=== PATIENT | female | born 1950 | race Caucasian/White ===

== ENCOUNTER 2016-06-04 03:43 | Emergency (ER) | payer MEDICARE, OTHER ==
[~2016-06-04] VITALS: Ht 157.5 cm; Wt 90.7 kg
[2016-06-04 04:10] LABS: HEMOGLOBIN 13.9 g/dL (12.2-16.2); LYMPH # 2.5 K/mm3 (0.7-4.5); LYMPH % 26.8 % (10-50.0)
[2016-06-04 04:28] LABS: BUN 24 mg/dL (7-18)
[2016-06-04 04:41] LABS: GFR (ESTIMATED) 72 ML/MIN (59-)
--- NOTE | 2016-06-04 05:47 | RADIOLOGY REPORT PS360 ---
CHEST(2 VIEWS-NOT PORTABLE) HISTORY: CHEST PAIN ORDERING PHYSICIAN: Promise Nelson MD PATIENT AGE: 65 years COMPARISON: 06/24/2015 FINDINGS: There is cardiomegaly with mild pulmonary venous congestion consistent with mild CHF. Increased density is present in the right lung base medially. While this may be related to pericardial fat pad, it is more prominent than when compared to the previous exam. Chronic change with superimposed consolidation or volume loss is considered. Follow-up recommended. If this remains prominent and CT may be needed for further evaluation. No lobar consolidation or collapse. The left lung is clear. No acute bony anomalies. IMPRESSION: 1. Mild congestive heart failure. 2. Probable pericardial fat pad on the right. Cannot exclude superimposed airspace disease. Follow-up recommended.
--- NOTE | 2016-06-04 06:25 | Emergency Room Report ---
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 N Clinical Suspician of Infection? N Mental Status: 1 - Regular (Normal Baseline) Sepsis Risk:Low Sepsis Risk Have you (or family members/close friends) recently traveled outside the [place]? N If Yes, where/when: Have you had exposure to infectious disease within the past month? N TB? Other? Specify: Source patient, RN notes reviewed, family, old records Exam Limitations no limitations Comment episode of shoulder blade chest pain with epigastric pain with no fever or rash Cardiac Chest Pain Chest pain indicative of cardiac No Timing/Duration this evening Severity moderate ALLERGIES Coded Allergies: aspirin (Severe, [id number]/THROAT 07/09/15) ciprofloxacin (From Cipro) (Intermediate, I-RASH, RED ALL OVER 07/09/15) Home Medications Reported Medications No Known Home Medications History Medical History General CAD? No Angina: No NH: No Hypertension? No Hyperlipidemia? No CHF? No DVT? No PE? No COPD? No Asthma? No Anemia? No GERD? No Gastric ulcers? No GI Bleed? No Hernia? No Thyroid Problems? No Hypothyroidism? No CVA? No Seizures? No Diabetes? No Renal Insuffiency? No End Stage Renal Disease? No UTI? No Stones? No BPH? No GB Disease: No Nephritic Syndrome? No Asplenia? No Hepatitis? No Sickle Cell Disease? No Arthritis? No Migraines? No Cataracts? No Glaucoma? No MRSA? No HIV? No TB? No Anxiety? No Depression? No Cancer? No Site: N More? No Immunization Hx DT/Tetanus 1-4 Years Ago Surgical Hx Previous Surgery?N Social History Smoking Hx Smoker: Never Smoker Tobacco: No Drugs none Review of Systems All Other Systems Reviewed and Negative Constitutional denies fever Eyes denies drainage ENT denies: ear pain, epistaxis, throat pain. Respiratory denies cough, denies shortness of breath, denies wheezing Cardiovascular see HPI, chest pain, denies palpitations, denies syncope Gastrointestinal denies abdominal pain, denies diarrhea, denies vomiting Genitourinary denies: dysuria, frequency, hesitancy, hematuria. Musculoskeletal denies back pain, denies joint pain, denies joint swelling, denies neck pain Skin denies rash Psychiatric/Neurological denies headache, denies seizure Physical Exam Vital Signs Vital Signs Date Time Temp Pulse Resp B/P Pulse O2 O2 Flow FiO2 Ox Delivery Rate 06/04 0534 72 20 192/85 98 06/04 0544 68 16 174/84 98 06/04 0443 69 16 164/95 98 06/04 0344 98.1 75 16 98 - WBC >12,000 or <4,000 or 10% bands? 2 or more SIRS Criteria Met? B/P:174/84 MAP: Creatinine >2.0? UA output<0.5ml/kg/hr for 2 hrs? Platelet count >100,000? Lactate >2.0mmol/1? INR >1.2 or PTT > than 60 sec? Evidence of Organ Dysfunction? Provider documented clinical suspician of infection? N Sepsis Criteria Count: 0 Sepsis Risk: Low Sepsis Risk General Appearance no apparent distress Eye Exam - bilateral eye PERRL, bilateral eye EOMI Ear, Nose, Throat normal ENT inspection Neck supple Respiratory Status No: respiratory distress. Lung Sounds bilateral: lungs clear. 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 No Results/Orders Laboratory Tests 06/04/16 0545: Creatine Kinase 46, CK-MB (CK-2) Rel Index 3.0, CK and CKMB Interp 1.4, Troponin I < 0.02 06/04/16 0350: Sodium 141, Potassium 3.8, Chloride 105, Carbon Dioxide 27, BUN 24 H, Creatinine 0.8, Estimated Creat Clear 100, Estimated GFR (MDRD) 72, Glucose 115 H, Calcium 9.0, Total Bilirubin 0.4, AST 15, ALT 29, Alkaline Phosphatase 71, Creatine Kinase 55, CK-MB (CK-2) Rel Index 2.9, CK and CKMB Interp 1.6, Troponin I < 0.02, Total Protein 7.2, Albumin 3.8, Globulin 3.4 H, Albumin/Globulin Ratio 1.1, D-Dimer < 100, WBC 9.1, RBC 4.45, Hgb 13.9, Hct 40.7, MCV 91.4, RDW 13.6, Plt Count 187, MPV 6.7 L, Gran % 64.4, Gran # 5.9, Lymphocytes % 26.8, Monocytes % 3.8, Eosinophils % 4.6, Basophils % 0.3, Lymphocytes # 2.5, Monocytes # 0.4, Eosinophils # 0.4, Basophils # 0.0, PUBS MCHC 34.2, MCH 31.3 H Current Medication Orders Sig/Estella Start time Last Medication Dose Route Stop Time Status Admin Sodium Chloride 10 ML PRN PRN 06/04 0400 AC IV 06/05 347 Orders Procedure Date/time Status ECHO ADULT 06/04 0747 Active CARDIAC ENZYMES 06/04 0545 Complete ELECTROCARDIOGRAM REQUEST 06/04 347 Active IV SALINE LOCK 06/04 347 Active D-DIMER 06/04 347 Complete CBC WITH AUTO DIFF 06/04 347 Complete CARDIAC ENZYMES 06/04 347 Complete CHEM 12 PROFILE 06/04 347 Complete CM/EKG 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 ST/Twave chgs XRAY/CT/US XRAY/CT/US XRAY chest XR interpretation by reviewed by me Xray Results abnormal (cm) Departure Departure Time of Disposition 623 Disposition DC Home or Self Care(routine) Clinical Impression Primary Impression: Chest pain Qualifiers: Chest pain type: precordial chest pain Qualified Code: R07.2 - Precordial pain Secondary Impressions: Heart murmur, systolic HTN (hypertension) Qualifiers: Hypertension type: essential hypertension Qualified Code: I10 - Essential (primary) hypertension Condition STABLE Referrals Tino MARTINEZ,Neftali (Family) asked card to see pt Prescriptions Current Visit Scripts No Known Home Medications ED Critical Care Critical Care No
--- NOTE | 2016-06-04 06:25 | Emergency Room Report ---
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 N Clinical Suspician of Infection? N Mental Status: 1 - Regular (Normal Baseline) Sepsis Risk:Low Sepsis Risk Have you (or family members/close friends) recently traveled outside the [place]? N If Yes, where/when: Have you had exposure to infectious disease within the past month? N TB? Other? Specify: Source patient, RN notes reviewed, family, old records Exam Limitations no limitations Comment episode of shoulder blade chest pain with epigastric pain with no fever or rash Cardiac Chest Pain Chest pain indicative of cardiac No Timing/Duration this evening Severity moderate ALLERGIES Coded Allergies: aspirin (Severe, [id number]/THROAT 07/09/15) ciprofloxacin (From Cipro) (Intermediate, I-RASH, RED ALL OVER 07/09/15) Home Medications Reported Medications No Known Home Medications History Medical History General CAD? No Angina: No CA: No Hypertension? No Hyperlipidemia? No CHF? No DVT? No PE? No COPD? No Asthma? No Anemia? No GERD? No Gastric ulcers? No GI Bleed? No Hernia? No Thyroid Problems? No Hypothyroidism? No CVA? No Seizures? No Diabetes? No Renal Insuffiency? No End Stage Renal Disease? No UTI? No Stones? No BPH? No GB Disease: No Nephritic Syndrome? No Asplenia? No Hepatitis? No Sickle Cell Disease? No Arthritis? No Migraines? No Cataracts? No Glaucoma? No MRSA? No HIV? No TB? No Anxiety? No Depression? No Cancer? No Site: N More? No Immunization Hx DT/Tetanus 1-4 Years Ago Surgical Hx Previous Surgery?N Social History Smoking Hx Smoker: Never Smoker Tobacco: No Drugs none Review of Systems All Other Systems Reviewed and Negative Constitutional denies fever Eyes denies drainage ENT denies: ear pain, epistaxis, throat pain. Respiratory denies cough, denies shortness of breath, denies wheezing Cardiovascular see HPI, chest pain, denies palpitations, denies syncope Gastrointestinal denies abdominal pain, denies diarrhea, denies vomiting Genitourinary denies: dysuria, frequency, hesitancy, hematuria. Musculoskeletal denies back pain, denies joint pain, denies joint swelling, denies neck pain Skin denies rash Psychiatric/Neurological denies headache, denies seizure Physical Exam Vital Signs Vital Signs Date Time Temp Pulse Resp B/P Pulse O2 O2 Flow FiO2 Ox Delivery Rate 06/04 0534 72 20 192/85 98 06/04 0544 68 16 174/84 98 06/04 0443 69 16 164/95 98 06/04 0344 98.1 75 16 98 - WBC >12,000 or <4,000 or 10% bands? 2 or more SIRS Criteria Met? B/P:174/84 MAP: Creatinine >2.0? UA output<0.5ml/kg/hr for 2 hrs? Platelet count >100,000? Lactate >2.0mmol/1? INR >1.2 or PTT > than 60 sec? Evidence of Organ Dysfunction? Provider documented clinical suspician of infection? N Sepsis Criteria Count: 0 Sepsis Risk: Low Sepsis Risk General Appearance no apparent distress Eye Exam - bilateral eye PERRL, bilateral eye EOMI Ear, Nose, Throat normal ENT inspection Neck supple Respiratory Status No: respiratory distress. Lung Sounds bilateral: lungs clear. Cardiovascular regular rate/rhythm, systolic murmur Peripheral Pulses Pulses normal Yes Gastrointestinal soft Extremities no calf tenderness, pedal edema Strength 4 Upper Ext (L), 4 Upper Ext (R), 4 Lower Ext (L), 4 Lower Ext (R) Neurologic alert, physician locums urgent care II-XII nml as tested, no motor/sensory deficits Reflexes Reflexes normal Yes Mental status normal mood/affect Skin intact Medical Decision Making LABS/Meds/Orders Pt receiving controlled substance in ED? No Results/Orders Laboratory Tests 06/04/16 0545: Creatine Kinase 46, CK-MB (CK-2) Rel Index 3.0, CK and CKMB Interp 1.4, Troponin I < 0.02 06/04/16 0350: Sodium 141, Potassium 3.8, Chloride 105, Carbon Dioxide 27, BUN 24 H, Creatinine 0.8, Estimated Creat Clear 100, Estimated GFR (MDRD) 72, Glucose 115 H, Calcium 9.0, Total Bilirubin 0.4, AST 15, ALT 29, Alkaline Phosphatase 71, Creatine Kinase 55, CK-MB (CK-2) Rel Index 2.9, CK and CKMB Interp 1.6, Troponin I < 0.02, Total Protein 7.2, Albumin 3.8, Globulin 3.4 H, Albumin/Globulin Ratio 1.1, D-Dimer < 100, WBC 9.1, RBC 4.45, Hgb 13.9, Hct 40.7, MCV 91.4, RDW 13.6, Plt Count 187, MPV 6.7 L, Gran % 64.4, Gran # 5.9, Lymphocytes % 26.8, Monocytes % 3.8, Eosinophils % 4.6, Basophils % 0.3, Lymphocytes # 2.5, Monocytes # 0.4, Eosinophils # 0.4, Basophils # 0.0, PUBS MCHC 34.2, MCH 31.3 H Current Medication Orders Sig/Estella Start time Last Medication Dose Route Stop Time Status Admin Sodium Chloride 10 ML PRN PRN 06/04 0400 AC IV 06/05 347 Orders Procedure Date/time Status ECHO ADULT 06/04 0747 Active CARDIAC ENZYMES 06/04 0545 Complete ELECTROCARDIOGRAM REQUEST 06/04 347 Active IV SALINE LOCK 06/04 347 Active D-DIMER 06/04 347 Complete CBC WITH AUTO DIFF 06/04 347 Complete CARDIAC ENZYMES 06/04 347 Complete CHEM 12 PROFILE 06/04 347 Complete CM/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 ST/Twave chgs XRAY/CT/US XRAY/CT/US XRAY chest XR interpretation by reviewed by me Xray Results abnormal (cm) Departure Departure Time of Disposition 623 Disposition DC Home or Self Care(routine) Clinical Impression Primary Impression: Chest pain Qualifiers: Chest pain type: precordial chest pain Qualified Code: R07.2 - Precordial pain Secondary Impressions: Heart murmur, systolic HTN (hypertension) Qualifiers: Hypertension type: essential hypertension Qualified Code: I10 - Essential (primary) hypertension Condition STABLE Referrals Tino MARTINEZ,Neftali (Family) asked card to see pt Prescriptions Current Visit Scripts No Known Home Medications ED Critical Care Critical Care No
--- NOTE | 2016-06-04 07:55 | CONSULT NOTE ---
See Addendum Standard Demographics Patient Demo Date of Consultation: 06/04/16 Referring Provider: Zahra Nelson MD Reason for Consultation: chest pain, CHF, HTN PRIMARY DIAGNOSIS: chest pain Problem list Problem list: 1. Asthma 2. History of enlarged heart per patient 3. History of cardiac murmur per patient History of present illness: History of present illness: [id number] white female seen in the emergency department for greater than 12 hours of RIGHT shoulder and chest discomfort. Patient states onset of RIGHT shoulder discomfort about noon yesterday with gradual progression to include chest tightness and RIGHT anterior and substernal chest discomfort that prompted emergency room visit. Patient states the symptoms gradually resolved on their own by the time she came to the emergency room. Patient does relate lower extremity and upper extremity swelling that is worse in the morning and resolves during the day. Evaluation in the emergency room revealed normal troponins 2 with normal d-dimer. Electrocardiogram is sinus rhythm with nonspecific ST-T abnormalities. Chest x-ray revealed some mild evidence of congestive heart failure. Cardiology consulted for further evaluation and recommendations. Past Medical History: General: Hypertension No CVA No Seizures No TB No COPD No Asthma No Diabetes No Angina No [place] No Hyperlipidemia No Cancer No MRSA No GB Disease No Past Surgical HX: Previous Surgery?N Allergies Coded Allergies: aspirin (Severe, [id number]/THROAT 07/09/15) ciprofloxacin (From Cipro) (Intermediate, I-RASH, RED ALL OVER 07/09/15) Home medications: Reported Medications No Known Home Medications Current Medications: Current Medications Sodium Chloride 10 ML PRN PRN IV Immunization HX DT/Tetanus 1-4 Years Family history Family HX Family Hx Insignificant No Social Hx: Smoking HX Tobacco No Hx of Drug Use Drug Use? No Patien't marital status is single Patient's support system is good Review of systems: Constitutional No: no symptoms reported. Respiratory No: no symptoms reported. Cardiovascular see HPI, chest pain, edema Gastrointestinal/Abdominal No no symptoms reported Genitourinary No: no symptoms reported. Musculoskeletal see HPI, muscle pain. Neurological No: no symptoms reported. Exam: Admission Vital Signs: 1ST Vital Signs Result Date Time Pulse Ox 98 06/04 0344 Temp 98.1 06/04 343 Pulse 75 06/04 0344 Resp 16 06/04 0344 B/P 164/95 02/09 0443 Last Vital Signs: Vital Signs Result Date Time Pulse Ox 98 06/04 633 B/P 192/85 06/04 633 Pulse 72 06/04 633 Resp 20 06/04 633 Temp 98.1 06/04 0344 Exam General appearance: alert, awake, no acute distress Neck: no carotid bruit, no JVD Cardiovascular: regular rate and rhythm with grade 2/6 systolic ejection murmur heard along the sternal border. Respiratory: clear to auscultation, good air movement ABD: soft, no tenderness Extremities: moves all, edema Neuro: alert, intact, oriented, speech clear Laboratory data: Laboratory Tests 06/04/16 0545: Creatine Kinase 46, CK-MB (CK-2) Rel Index 3.0, CK and CKMB Interp 1.4, Troponin I < 0.02 06/04/16 0350: Sodium 141, Potassium 3.8, Chloride 105, Carbon Dioxide 27, BUN 24 H, Creatinine 0.8, Estimated Creat Clear 100, Estimated GFR (MDRD) 72, Glucose 115 H, Calcium 9.0, Total Bilirubin 0.4, AST 15, ALT 29, Alkaline Phosphatase 71, Creatine Kinase 55, CK-MB (CK-2) Rel Index 2.9, CK and CKMB Interp 1.6, Troponin I < 0.02, Total Protein 7.2, Albumin 3.8, Globulin 3.4 H, Albumin/Globulin Ratio 1.1, D-Dimer < 100, WBC 9.1, RBC 4.45, Hgb 13.9, Hct 40.7, MCV 91.4, RDW 13.6, Plt Count 187, MPV 6.7 L, Gran % 64.4, Gran # 5.9, Lymphocytes % 26.8, Monocytes % 3.8, Eosinophils % 4.6, Basophils % 0.3, Lymphocytes # 2.5, Monocytes # 0.4, Eosinophils # 0.4, Basophils # 0.0, PUBS MCHC 34.2, MCH 31.3 H Plan: Assessment: 1. Chest pain/tightness with concern for angina pectoris. Patient's JONATHON score is 1-2 (65 years of age, chest pain). 2. Congestive heart failure noted on chest x-ray 3. Hypertensive blood pressure noted in the emergency room 4. Cardiac murmur on exam 5. History of asthma Recommendations: 1. Discussed with Dr. Beauchamp. Will obtain an echocardiogram to evaluate LEFT ventricular systolic function and etiology of cardiac murmur. Further recommendations pending. 2. Hypertension, will begin antihypertensive medications once the results of the echocardiogram are available. at 4045
[2016-06-04 09:22] VITALS: BP 142/62
--- NOTE | 2016-06-04 10:12 | RADIOLOGY REPORT PS360 ---
PROCEDURE: 2-D M-mode and color Doppler study INDICATIONS FOR THE TEST: Chest pain+ COPD Heart Murmur+ Tobacco Smoking Palpitations Fatigue Syncope Edema+ Hypertension Diabetes Mellitus Rheumatic Fever SOB+NIETO+Obesity+Hyperlipidemia Family History HD Additional History CHF, Bradycardia, Asthma, hx of smoking 39 years ago PATIENT INFORMATION HEIGHT: 62 WEIGHT: 200 GENDER: Female B/P: 177/97 2-D/M-MODE INTERPRETATION: 2-D MEASUREMENTS OBSERVED VALUES IN CMS Right Ventricular Dimension (RVDd) 2.0 Interventricular Septum (Thickness)(IVsd) 1.3 Left Ventricular Internal Dimensions(LVIDd) 5.3 Left Ventricular Posterior Wall (Thickness)(LVPWd) 1.3 Aortic Root 2.1 Aortic Cusp Separation 1.8 Left Atrial Dimensions (LAD) 4.3 2D 1. The left atrium is mildly enlarged, the left ventricle is normal size, there is mild concentric left ventricular hypertrophy, visually estimated ejection fraction 50% with no obvious regional wall motion abnormality. 2. The right atrium and right ventricle are normal size and contractility. 3. The aortic valve is minimally thickened and fibrosed consistent with mild aortic sclerosis. 4. The mitral valve leaflets are minimally thickened, there is no mitral stenosis. 5. The tricuspid valve restructure normal. 6. The pulmonic valve not well visualized. 7. No significant pericardial effusion noted. DOPPLER INTERROGATION: Doppler interrogation of the aortic mitral and tricuspid valve reveals presence of moderate mitral and mild tricuspid regurgitation, tricuspid regurgitant jet velocity insufficient for cannulation of the right ventricular systolic pressure, grade 1 diastolic dysfunction seen without Doppler evidence of raised left atrial pressure. CONCLUSION: 1. Mildly enlarged left atrium, normal left ventricular size, mild concentric left ventricular hypertrophy present, visually estimated ejection fraction of 50% with no obvious regional wall motion abnormality. Grade 1 diastolic dysfunction seen, without Doppler evidence of raised left atrial pressure. 2. Moderate mitral and mild tricuspid regurgitation, tricuspid regurgitant jet velocity insufficient for calculation of the right ventricular systolic pressure. 3. No significant pericardial effusion noted.
== END 2016-06-04 09:23 | disposition home or self-care (01) ==
LOC: ER 03:43
PROVIDERS: Emergency Medicine
DX: R07.2 Precordial pain (principal); I10 Essential (primary) hypertension; R01.1 Cardiac murmur, unspecified

== ENCOUNTER → 2017-02-11 | Outpatient (CLI) | payer MEDICARE, OTHER ==
--- NOTE | 2017-02-11 15:59 | RADIOLOGY REPORT PS360 ---
CHEST(2 VIEWS-NOT PORTABLE) HISTORY: Shortness of air with cough BRONCHOPNEUMONIA,SOB ORDERING PHYSICIAN: Meghana PRICE PATIENT AGE: 66 years COMPARISON: 06/04/2016 FINDINGS: There is mild cardiomegaly without failure. No lobar consolidation or collapse. Lungs are clear bilaterally. Mild degenerative changes in the thoracic spine with no acute bony finding. IMPRESSION: Cardiomegaly, no acute finding
== END ==
LOC: RAD 14:40
DX: J18.0 Bronchopneumonia, unspecified organism (principal); R06.02 Shortness of breath

== ENCOUNTER → 2017-03-02 | Outpatient (CLI) | payer MEDICARE, OTHER | LOC: RT 13:35 | DX: R06.02 Shortness of breath (principal) ==

== ENCOUNTER 2017-03-11 07:17 | Day surgery (SDC) | payer MEDICARE, OTHER ==
[2017-03-11 10:30] VITALS: BP 143/64
--- NOTE | 2017-03-11 10:42 | RADIOLOGY REPORT PS360 ---
CARDIAC CATHETERIZATION DATE OF CATHETERIZATION: PROCEDURES: 1. Right heart catheterization 2. Right internal jugular vein access INDICATION FOR TEST: 1. Moderate mitral regurgitation 2. Pulmonary hypertension Informed consent was obtained prior to the procedure. COMPLICATIONS: None ESTIMATED BLOOD LOSS: Less than 10 ml. TECHNIQUE: One percent lidocaine was used to anesthetize the right anterior aspect of the neck. A physician surgeon needle was used to identify the right internal jugular vein. Following this a larger cannulation needle was used to cannulate the right internal jugular vein and a wire was passed into the vein. Prior to the 7 Swazi sheath being inserted the wire was confirmed under fluoroscopic guidance to be in the inferior vena cava. A 7 Swazi sheath was introduced and a [place]-Sun catheter was floated using hemodynamic waveforms in the pulmonary artery, right ventricle , and right atrium. Saturations were obtained in the pulmonary artery and the right atrium. At the end of the procedure the patient was transferred to the postop holding area in stable condition for sheath removal. HEMODYNAMICS: Right atrial pressure is 7 mm Hg. Right ventricular pressure is 28/8 mm Hg. Pulmonary arterial pressure is 28/12 mm Hg. Pulmonary artery occlusion pressure is 10 mm Hg. SATURATIONS: RA is 81 %. PA is 81 %. IMPRESSION: 1. Mild pulmonary hypertension PLAN: 1. We'll proceed with PJ 2. Medical management
--- NOTE | 2017-03-11 10:42 | RADIOLOGY REPORT PS360 ---
CARDIAC CATHETERIZATION DATE OF CATHETERIZATION: PROCEDURES: 1. Right heart catheterization 2. Right internal jugular vein access INDICATION FOR TEST: 1. Moderate mitral regurgitation 2. Pulmonary hypertension Informed consent was obtained prior to the procedure. COMPLICATIONS: None ESTIMATED BLOOD LOSS: Less than 10 ml. TECHNIQUE: One percent lidocaine was used to anesthetize the right anterior aspect of the neck. A payroll professional needle was used to identify the right internal jugular vein. Following this a larger cannulation needle was used to cannulate the right internal jugular vein and a wire was passed into the vein. Prior to the 7 [place]istanian sheath being inserted the wire was confirmed under fluoroscopic guidance to be in the inferior vena cava. A 7 Tristanian sheath was introduced and a [place]-Sun catheter was floated using hemodynamic waveforms in the pulmonary artery, right ventricle , and right atrium. Saturations were obtained in the pulmonary artery and the right atrium. At the end of the procedure the patient was transferred to the postop holding area in stable condition for sheath removal. HEMODYNAMICS: Right atrial pressure is 7 mm Hg. Right ventricular pressure is 28/8 mm Hg. Pulmonary arterial pressure is 28/12 mm Hg. Pulmonary artery occlusion pressure is 10 mm Hg. SATURATIONS: RA is 81 %. PA is 81 %. IMPRESSION: 1. Mild pulmonary hypertension PLAN: 1. We'll proceed with PJ 2. Medical management
[2017-03-11 13:16] LABS: ARTERIAL O2 SAT CATH LAB 81.6 % (90-100); VENOUS O2 SAT CATH LAB 81.2 % (75-80)
== END 2017-03-11 10:10 | disposition home or self-care (01) ==
LOC: CATHLAB 07:17
PROVIDERS: Internal Medicine
PROC: 4A023N6 Measurement of Cardiac Sampling and Pressure, Right Heart, Percutaneous Approach (ICD-10-PCS; principal; 2017-03-11 11:00)
DX: I34.0 Nonrheumatic mitral (valve) insufficiency (principal); I27.20 Pulmonary hypertension, unspecified; I10 Essential (primary) hypertension; R06.09 Other forms of dyspnea
CPT/HCPCS: C1894; J1644

== ENCOUNTER → 2017-03-12 | Day surgery (SDC) | payer MEDICARE, OTHER ==
[~2017-03-12] VITALS: Ht 157.5 cm; Wt 101.2 kg
--- NOTE | 2017-03-12 14:23 | RADIOLOGY REPORT PS360 ---
Procedure: Transesophageal echocardiogram Indication for procedure: Shortness of breath, evaluate mitral regurgitation. Procedure: Patient was brought in to the cardiac catheter lab holding area and is stable condition, after the informed consent, conscious sedation was provided by anesthesiologist, local anesthesia was applied, transesophageal echocardiogram was performed without any difficulty. Patient tolerated the procedure well. Findings: 1. The left atrium is mildly enlarged, left atrial appendage is free of thrombus, there is good appendage flow by spectral Doppler. 2. The right atrium is mildly enlarged, there is no thrombus in the right atrium. 3. The intra-atrial septum is intact, there is no flow across the intra-atrial septum, agitated saline contrast study fails to identify intracardiac shunt. 4. The aortic valve is minimally thickened and fibrosed leaflet continue to display good mobility there is no aortic stenosis, there is trace aortic insufficiency. 5. The mitral valve leaflets are minimally thickened, there is no mitral stenosis, there is mild mitral regurgitation. 6. The tricuspid valve is structurally normal, there is mild tricuspid regurgitation. 7. The pulmonic valve is structurally normal. 8. The right ventricle is mildly enlarged with normal contractility. 9. The left ventricle is normal size, there is preserved left ventricular systolic function, visually estimated ejection fraction of 55% with no obvious regional wall motion abnormality. 10. No significant pericardial effusion noted 11. Ascending, arch and descending thoracic aorta there is no aneurysm or dissection, nonmobile by atheromatous plaque seen in the descending thoracic aorta. Conclusion: 1. Mild biatrial enlargement, normal left ventricular size, preserved left ventricular systolic function, visually estimated ejection fraction 55% with no obvious regional wall motion abnormality. 2. Mildly enlarged right ventricle with normal contractility. 3. Trace aortic, mild mitral and tricuspid regurgitation. 4. Agitated saline contrast study fails to identify intracardiac shunt. 5. Nonmobile atheromatous plaque seen in the descending thoracic aorta. 6. No significant pericardial effusion noted.
[2017-03-12 15:00] VITALS: BP 153/63
== END ==
LOC: CATHLAB 08:00
DX: I34.0 Nonrheumatic mitral (valve) insufficiency (principal); R06.00 Dyspnea, unspecified; I10 Essential (primary) hypertension; I27.20 Pulmonary hypertension, unspecified